=== PATIENT | female | born 1975 | race Caucasian/White ===

== ENCOUNTER 2021-02-14 09:44 | Emergency (ER) | payer SELFPAY ==
[~2021-02-14] VITALS: Ht 162.6 cm; Wt 101.4 kg
--- NOTE | 2021-02-14 10:10 | NUR ---
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 Orders reviewed.
[2021-02-14] MEDS ORDERED: KETOROLAC 60 MG/2 ML ONE (10:12)
--- NOTE | 2021-02-14 10:18 | NUR ---
IM med given for pain with aseptic technique. writer technical publications here for xray as ordered.
[2021-02-14 10:20] LABS: BASOPHILS % (AUTO) 1 % (0-1); EOSINOPHILS % (AUTO) 2 % (1-7); LYMPHOCYTES % (AUTO) 32 % (22-44); MEAN CORPUSCULAR HEMOGLOBIN 30.3 pg (27.0-34.8); MEAN CORPUSCULAR HGB CONC 34.1 g/dL (32.4-35.8); MEAN PLATELET VOLUME 8.2 fL (7.4-10.4); MONOCYTES % (AUTO) 8 % (2-9); NEUTROPHILS % (AUTO) 57 % (42-75); PLATELET COUNT 312 x10^3/uL (130-400); RED BLOOD COUNT 4.84 x10^6/uL (3.82-5.3); RED CELL DISTRIBUTION WIDTH 13.2 % (9.6-15.2)
[2021-02-14 10:22] LABS: MD NO
[2021-02-14 10:30] LABS: ALANINE AMINOTRANSFERASE 28 U/L (12-78); ALBUMIN 3.5 g/dL (3.4-5.0); ANION GAP 4 mmol/L (5-15); CALCIUM 9.2 mg/dL (8.5-10.1); CHLORIDE 108 mmol/L (98-107); CREATININE 0.78 mg/dL (0.55-1.02)
[2021-02-14] MEDS ORDERED: KETOROLAC 30 MG/1 ML IM ONE (10:30)
--- NOTE | 2021-02-14 10:30 | NUR ---
Pt back from radiology.
[2021-02-14 10:32] LABS: ALKALINE PHOSPHATASE 63 U/L (45-117); BILIRUBIN,TOTAL 0.2 mg/dL (0.2-1.0); TOTAL PROTEIN 7.5 g/dL (6.4-8.2)
--- NOTE | 2021-02-14 10:43 | NUR ---
Pain is at 5/10 after medical laboratory technician on reassessment.
--- NOTE | 2021-02-14 10:50 | NUR ---
All results posted and reviewed. Chart marked for recheck.
--- NOTE | 2021-02-14 10:55 | NUR ---
MD at bedside for assessment/recheck and discussion of plan of care.
[2021-02-14 11:44] VITALS: BP 129/70
== END 2021-02-14 11:45 | disposition home or self-care (01) ==
LOC: ED 10:49
DX: M25.521 Pain in right elbow (principal)
CPT/HCPCS: 36415; 73080; 80053; 85025; 96372; 99284; J1885